=== PATIENT | male | born 1960 | race Two or more races ===

== ENCOUNTER 2020-07-20 10:53 | Inpatient (IN) | payer MEDICARE, MEDICAID ==
[~2020-07-20] VITALS: Ht 167.6 cm; Wt 79.5 kg
[2020-07-20 11:23] LABS: Basophils # (auto) 0.1 10 ^3/uL (0-0.2); Eosinophils # (auto) 0.1 10 ^3/uL (0-0.8); Eosinophils % (auto) 0.5 % (0.0-7.0); Lymphocytes # (auto) 1.7 10 ^3/uL (0.4-5.4)
[2020-07-20 11:24] LABS: Basophils % (auto) 0.9 % (0.0-2.0); Hematocrit 48.3 % (41.0-53.0); Hemoglobin 15.6 g/dL (13.5-17.5); Lymphocytes % (auto) 11.9 % (10.0-50.0); Mean Corpuscular Hemoglobin 26.1 pg (28.0-32.0); Mean Corpuscular Hgb Conc. 32.4 g/dL (32.0-36.0); Mean Corpuscular Volume 80.7 fL (80.0-100.0); Monocytes # (auto) 1.1 10 ^3/uL (0-1.3); Monocytes % (auto) 7.9 % (0.0-12.0); Neutrophils # (auto) 11.1 10 ^3/uL (1.6-8.6); Neutrophils % (auto) 78.8 % (37.0-80.0); Nucleated Red Blood Cells % 0.1 %; Platelet Count (auto) 334 10^3/uL (140-450); Red Blood Cells 5.99 10^6/uL (4.5-5.90); Red Cell Distribution Width 17.9 % (11.8-14.3); White Blood Cell 14.1 10^3/uL (4.4-10.8)
[2020-07-20 11:39] LABS: INR 0.99 (0.9-1.15); Partial Thromboplastin Time 30.3 sec (23.0-31.2)
[2020-07-20 11:41] LABS: Alanine Aminotransferase 24 U/L (16-61); Albumin 3.6 g/dL (3.4-5.0); Anion Gap 10 (5-15); Blood Urea Nitrogen 9 mg/dL (7-18); Calcium 9.2 mg/dL (8.5-10.1); Carbon Dioxide 22 mmol/L (21-32); Chloride 104 mmol/L (98-107); Glucose 133 mg/dL (74-106); Magnesium 2.1 mg/dL (1.6-2.6); Potassium 3.8 mmol/L (3.5-5.1); Sodium 136 mmol/L (136-145)
[2020-07-20 11:46] LABS: Alkaline Phosphatase 94 U/L (45-117); Aspartate Aminotransferase 23 U/L (15-37); BUN/Creatinine Ratio 11.7; Bilirubin, Total 0.7 mg/dL (0.2-1.0); GFR African American 132 mL/min; GFR Non-African American 109 mL/min; Total Protein 7.6 g/dL (6.4-8.2)
[2020-07-20] MEDS ORDERED: cefTRIAXone 1GM/50ML D5W 50 ML IV ONE (13:30)
[2020-07-20] MEDS ORDERED: SODIUM CHLORIDE 0.9% 1,000 ML IVB ONE (13:30)
[2020-07-20 14:23] LABS: Lactic Acid w/Reflex 2.7 mmol/L (0.4-2.0)
[2020-07-20] MEDS ORDERED: DOCUSATE SOD 100 MG CAP PO PRN (14:30)
[2020-07-20] MEDS ORDERED: HYDROcodone-ACET 5/325MG TAB PO PRN (14:30)
[2020-07-20] MEDS ORDERED: ONDANSETRON HCL 4 MG/2 ML VIAL IV PRN (14:30)
[2020-07-20] MEDS ORDERED: ALBUTEROL SULF 2.5 MG/0.5ML(0.5%) NEB SOLN NEB PRN (14:30)
[2020-07-20] MEDS ORDERED: ACETAMINOPHEN 500 MG TAB PO PRN (14:30)
[2020-07-20] MEDS ORDERED: IPRATROPIUM BROM 0.5 MG/2.5ML INH SOL NEB PRN (14:30)
[2020-07-20] MEDS ORDERED: NITROGLYCERIN 0.4 MG SL TAB SL PRN (14:30)
[2020-07-20] MEDS ORDERED: MORPHINE SULF INJ 2 MG/ML SYRINGE 1ML IV PRN (14:30)
[2020-07-20 14:44] VITALS: BP 149/103
[2020-07-20] MEDS ORDERED: BACTRIM 5MG/KG Q8HR PER RX 0 ML IV SCH (15:00)
[2020-07-20] MEDS: SULFAMETH-TRIMETH 80/16MG-ML 20 ML in D5W 5% 500 ML IV SCH ×2 (15:51→21:49)
[2020-07-20 16:07] LABS: Cholesterol 129 mg/dL (< 200); HDL Cholesterol 53 mg/dL (40-59); LDL Cholesterol 65 mg/dL (< 100); Triglycerides 81 mg/dL (< 150)
[2020-07-20] MEDS ORDERED: ROSU20TA14 PO (17:15)
[2020-07-20] MEDS ORDERED: MULT-928 PO (17:15)
[2020-07-20] MEDS ORDERED: BACL20TA PO (17:15)
[2020-07-20] MEDS ORDERED: ALPR0.5T7 PO (17:15)
[2020-07-20] MEDS ORDERED: NEBI10TA2 PO (17:15)
[2020-07-20] MEDS ORDERED: TIZA2TAB3 PO (17:15)
[2020-07-20] MEDS ORDERED: CLOP75TA70 PO (17:15)
[2020-07-20] MEDS ORDERED: DOLU50TA PO (17:15)
[2020-07-20] MEDS ORDERED: DORA100T PO (17:15)
[2020-07-20] MEDS ORDERED: FURO1TAB31 PO (17:15)
[2020-07-20] MEDS ORDERED: OXYC325T10 PO (17:15)
[2020-07-20] MEDS ORDERED: ACYC-166 PO (17:15)
[2020-07-20] MEDS ORDERED: NALO4SPR2 NAS (17:15)
[2020-07-20] MEDS: MORPHINE SULF INJ 2 MG/ML SYRINGE 1ML IV PRN ×2 (17:16→21:55)
[2020-07-20 18:03] LABS: Urine Bacteria NONE SEEN /hpf (None Seen); Urine Blood Negative /uL (Negative); Urine Hyaline Cast FEW /lpf (0 - 2); Urine Mucus FEW (None Seen); Urine WBC <1 /hpf (0 - 3)
[2020-07-20] MEDS ORDERED: LABETALOL HCL 5 MG/ML 4ML SYRINGE IV PRN (19:00)
[2020-07-20] MEDS: ATORVASTATIN 20 MG TAB PO SCH (21:54)
[2020-07-20 22:26] VITALS: BP 135/89
[2020-07-20 22:46] VITALS: BP 135/89
[2020-07-20] MEDS ORDERED: ALPR0.25 PO (22:52)
[2020-07-20] MEDS ORDERED: PNEUMOCOCCAL VACC POLYS 25 MCG/0.5 ML VIAL IM ONE (23:00)
[2020-07-20] MEDS ORDERED: INFLUENZA QUAD 2020-2021 0.5 ML SYRG IM ONE (23:00)
[2020-07-21] VITALS (7 sets, daily range): BP systolic 147–160; BP diastolic 91–108
[2020-07-21] MEDS: MORPHINE SULF INJ 2 MG/ML SYRINGE 1ML IV PRN ×3 (03:17→22:14)
[2020-07-21] MEDS: SULFAMETH-TRIMETH 80/16MG-ML 20 ML in D5W 5% 500 ML IV SCH ×3 (05:26→22:00)
[2020-07-21 07:19] LABS: Basophils # (auto) 0.1 10 ^3/uL (0-0.2); Hemoglobin 15.2 g/dL (13.5-17.5); Lymphocytes # (auto) 1.9 10 ^3/uL (0.4-5.4); Mean Corpuscular Hemoglobin 26.4 pg (28.0-32.0); Platelet Count (auto) 279 10^3/uL (140-450); Red Cell Distribution Width 18.2 % (11.8-14.3)
[2020-07-21 07:21] LABS: Basophils % (auto) 0.7 % (0.0-2.0); Eosinophils # (auto) 0.2 10 ^3/uL (0-0.8); Eosinophils % (auto) 1.5 % (0.0-7.0); Hematocrit 45.7 % (41.0-53.0); Lymphocytes % (auto) 18.1 % (10.0-50.0); Mean Corpuscular Hgb Conc. 33.2 g/dL (32.0-36.0); Mean Corpuscular Volume 79.6 fL (80.0-100.0); Monocytes # (auto) 1.2 10 ^3/uL (0-1.3); Monocytes % (auto) 11.4 % (0.0-12.0); Neutrophils % (auto) 68.3 % (37.0-80.0); Nucleated Red Blood Cells % 0.6 %; Red Blood Cells 5.74 10^6/uL (4.5-5.90); White Blood Cell 10.3 10^3/uL (4.4-10.8)
[2020-07-21 07:40] LABS: Calcium 8.6 mg/dL (8.5-10.1); Potassium 3.9 mmol/L (3.5-5.1)
[2020-07-21] MEDS ORDERED: cefTRIAXone 1GM/50ML D5W 50 ML IV SCH (09:00)
[2020-07-21] MEDS: ASPirin-EC 81 mg tab PO SCH ×2 (09:42→10:20)
[2020-07-21] MEDS: FAMOTIDINE 20 MG TAB PO SCH ×2 (09:42→10:20)
[2020-07-21] MEDS: CLOPIDOGREL BISULFATE 75 MG TAB PO SCH ×2 (09:42→10:20)
[2020-07-21] MEDS ORDERED: AZITHROMYCIN 500MG/ 250ML 250 ML IV SCH (10:00)
[2020-07-21] MEDS ORDERED: IPRATROPIUM BROM 0.5 MG/2.5ML INH SOL NEB SCH (13:00)
[2020-07-21] MEDS ORDERED: ACETYLCYSTEINE 10 %(100MG/ML) SOL 4ML NEB SCH (13:00)
[2020-07-21] MEDS ORDERED: LEVALBUTEROL HCL 1.25 MG/3 ML NEB NEB SCH (13:15)
[2020-07-21] MEDS ORDERED: METOPROLOL TARTRATE 25 MG TAB PO ONE (14:00)
[2020-07-21] MEDS ORDERED: BACLOFEN 10 MG TAB PO PRN (14:00)
[2020-07-21] MEDS: ATORVASTATIN 20 MG TAB PO SCH (22:00)
[2020-07-21] MEDS: METOPROLOL TARTRATE 25 MG TAB PO SCH (22:01)
[2020-07-22] VITALS (7 sets, daily range): BP systolic 124–169; BP diastolic 89–115
[2020-07-22] MEDS ORDERED: LABETALOL HCL 5 MG/ML 4ML SYRINGE IV PRN (05:15)
[2020-07-22] MEDS: SULFAMETH-TRIMETH 80/16MG-ML 20 ML in D5W 5% 500 ML IV SCH ×3 (05:25→22:40)
[2020-07-22] MEDS: LEVALBUTEROL HCL 1.25 MG/3 ML NEB NEB SCH ×3 (07:49→22:23)
[2020-07-22] MEDS: ACETYLCYSTEINE 10 %(100MG/ML) SOL 4ML NEB SCH ×3 (07:49→22:24)
[2020-07-22] MEDS: IPRATROPIUM BROM 0.5 MG/2.5ML INH SOL NEB SCH ×3 (07:52→22:23)
[2020-07-22] MEDS: PIFELTRO 100 MG PO SCH (10:00)
[2020-07-22] MEDS: TIVICAY 50 MG PO SCH (10:00)
[2020-07-22] MEDS: ACYCLOVIR 400 MG TAB PO SCH (11:34)
[2020-07-22] MEDS: METOPROLOL TARTRATE 25 MG TAB PO SCH ×2 (11:35→22:41)
[2020-07-22] MEDS: POTASSIUM CHLORIDE 8 MEQ TAB PO SCH (11:36)
[2020-07-22] MEDS: FUROSEMIDE 40 MG TAB PO SCH (11:44)
[2020-07-22] MEDS: MORPHINE SULF INJ 2 MG/ML SYRINGE 1ML IV PRN (20:00)
[2020-07-22] MEDS: ATORVASTATIN 20 MG TAB PO SCH (22:40)
[2020-07-23 05:00] VITALS: BP 137/101
[2020-07-23] MEDS: SULFAMETH-TRIMETH 80/16MG-ML 20 ML in D5W 5% 500 ML IV SCH ×3 (06:05→20:59)
[2020-07-23] MEDS: IPRATROPIUM BROM 0.5 MG/2.5ML INH SOL NEB SCH ×3 (06:21→21:54)
[2020-07-23] MEDS: LEVALBUTEROL HCL 1.25 MG/3 ML NEB NEB SCH ×3 (06:21→21:54)
[2020-07-23] MEDS: ACETYLCYSTEINE 10 %(100MG/ML) SOL 4ML NEB SCH ×3 (06:21→21:54)
[2020-07-23 09:00] VITALS: BP 145/100
[2020-07-23] MEDS: FUROSEMIDE 40 MG TAB PO SCH (09:48)
[2020-07-23] MEDS: POTASSIUM CHLORIDE 8 MEQ TAB PO SCH (09:48)
[2020-07-23] MEDS: ACYCLOVIR 400 MG TAB PO SCH (09:48)
[2020-07-23] MEDS: FAMOTIDINE 20 MG TAB PO SCH (09:48)
[2020-07-23] MEDS: PIFELTRO 100 MG PO SCH (10:00)
[2020-07-23] MEDS: TIVICAY 50 MG PO SCH (10:00)
[2020-07-23] MEDS ORDERED: levoFLOXacin 500MG 100 ML IV ONE (10:15)
[2020-07-23 13:00] VITALS: BP_SYST 133; BP_SYST 135; BP_DIAS 84; BP_DIAS 96
[2020-07-23] MEDS: METOPROLOL TARTRATE 25 MG TAB PO SCH ×2 (14:01→21:14)
[2020-07-23] MEDS: LACTULOSE 20Gm/30ML SOLN PO SCH ×2 (14:14→17:54)
[2020-07-23 14:58] VITALS: BP 135/96
[2020-07-23 17:00] VITALS: BP 141/86
[2020-07-23] MEDS: methylPREDNISolone SOD SUCC 40 MG/ML VL IV SCH (20:59)
[2020-07-23] MEDS: ATORVASTATIN 20 MG TAB PO SCH (21:00)
[2020-07-23 22:14] VITALS: BP 135/99
[2020-07-24 05:15] VITALS: BP 119/78
[2020-07-24] MEDS: SULFAMETH-TRIMETH 80/16MG-ML 20 ML in D5W 5% 500 ML IV SCH ×3 (05:16→21:32)
[2020-07-24] MEDS: IPRATROPIUM BROM 0.5 MG/2.5ML INH SOL NEB SCH ×3 (07:00→14:18)
[2020-07-24] MEDS: LEVALBUTEROL HCL 1.25 MG/3 ML NEB NEB SCH ×3 (07:00→14:18)
[2020-07-24] MEDS: ACETYLCYSTEINE 10 %(100MG/ML) SOL 4ML NEB SCH ×3 (07:00→14:18)
[2020-07-24] MEDS: methylPREDNISolone SOD SUCC 40 MG/ML VL IV SCH ×2 (08:55→21:32)
[2020-07-24] MEDS: POTASSIUM CHLORIDE 8 MEQ TAB PO SCH (08:55)
[2020-07-24] MEDS: levoFLOXacin 500MG 100 ML IV SCH (08:55)
[2020-07-24] MEDS: FAMOTIDINE 20 MG TAB PO SCH (08:55)
[2020-07-24] MEDS: ACYCLOVIR 400 MG TAB PO SCH (08:56)
[2020-07-24] MEDS: MORPHINE SULF INJ 2 MG/ML SYRINGE 1ML IV PRN ×2 (08:57→20:35)
[2020-07-24 09:00] VITALS: BP 132/89
[2020-07-24] MEDS ORDERED: PIFELTRO 100 MG PO SCH (10:00)
[2020-07-24] MEDS: METOPROLOL TARTRATE 25 MG TAB PO SCH ×2 (10:00→21:33)
[2020-07-24] MEDS: PIFELTRO 100 MG PO SCH (11:51)
[2020-07-24] MEDS: TIVICAY 50 MG PO SCH (11:52)
[2020-07-24 13:00] VITALS: BP 148/97
[2020-07-24] MEDS: FUROSEMIDE 40 MG TAB PO SCH (13:03)
[2020-07-24 17:00] VITALS: BP 135/90
[2020-07-24 21:30] VITALS: BP 122/92
[2020-07-24] MEDS: ATORVASTATIN 20 MG TAB PO SCH (21:33)
[2020-07-24] MEDS: ALPRAZolam 0.25 MG TAB PO PRN (22:04)
[2020-07-25] MEDS ORDERED: SULFAMETH TRIMETH IV ONE (01:29)
[2020-07-25 05:00] VITALS: BP 143/97
[2020-07-25] MEDS: SULFAMETH-TRIMETH 80/16MG-ML 20 ML in D5W 5% 500 ML IV SCH ×3 (05:50→22:34)
[2020-07-25] MEDS: IPRATROPIUM BROM 0.5 MG/2.5ML INH SOL NEB SCH ×4 (07:00→23:01)
[2020-07-25] MEDS: LEVALBUTEROL HCL 1.25 MG/3 ML NEB NEB SCH ×4 (07:00→23:01)
[2020-07-25] MEDS: ACETYLCYSTEINE 10 %(100MG/ML) SOL 4ML NEB SCH ×4 (07:00→23:01)
[2020-07-25 07:05] LABS: Basophils # (auto) 0 10 ^3/uL (0-0.2); Eosinophils # (auto) 0 10 ^3/uL (0-0.8); Eosinophils % (auto) 0.1 % (0.0-7.0)
[2020-07-25 07:09] LABS: Basophils % (auto) 0.1 % (0.0-2.0); Hematocrit 52.4 % (41.0-53.0); Hemoglobin 17.4 g/dL (13.5-17.5); Lymphocytes # (auto) 1.2 10 ^3/uL (0.4-5.4); Lymphocytes % (auto) 9.7 % (10.0-50.0); Mean Corpuscular Hemoglobin 26.2 pg (28.0-32.0); Mean Corpuscular Hgb Conc. 33.2 g/dL (32.0-36.0); Mean Corpuscular Volume 79.1 fL (80.0-100.0); Monocytes # (auto) 0.8 10 ^3/uL (0-1.3); Monocytes % (auto) 6.8 % (0.0-12.0); Neutrophils # (auto) 10.2 10 ^3/uL (1.6-8.6); Neutrophils % (auto) 83.3 % (37.0-80.0); Nucleated Red Blood Cells % 0.2 %; Platelet Count (auto) 372 10^3/uL (140-450); Red Blood Cells 6.63 10^6/uL (4.5-5.90); Red Cell Distribution Width 17.8 % (11.8-14.3); White Blood Cell 12.3 10^3/uL (4.4-10.8)
[2020-07-25 07:12] LABS: INR 1.08 (0.9-1.15)
[2020-07-25 07:17] LABS: Calcium 9.5 mg/dL (8.5-10.1); Potassium 4.5 mmol/L (3.5-5.1)
[2020-07-25 07:21] LABS: BUN/Creatinine Ratio 21.1
[2020-07-25 08:27] VITALS: BP 129/92
[2020-07-25] MEDS: PIFELTRO 100 MG PO SCH (10:09)
[2020-07-25] MEDS: methylPREDNISolone SOD SUCC 40 MG/ML VL IV SCH (10:09)
[2020-07-25] MEDS: levoFLOXacin 500MG 100 ML IV SCH (10:09)
[2020-07-25] MEDS: POTASSIUM CHLORIDE 8 MEQ TAB PO SCH (10:10)
[2020-07-25] MEDS: FUROSEMIDE 40 MG TAB PO SCH (10:10)
[2020-07-25] MEDS: TIVICAY 50 MG PO SCH (10:10)
[2020-07-25] MEDS: FAMOTIDINE 20 MG TAB PO SCH (10:11)
[2020-07-25] MEDS: ACYCLOVIR 400 MG TAB PO SCH (10:11)
[2020-07-25] MEDS: METOPROLOL TARTRATE 25 MG TAB PO SCH ×2 (10:11→22:53)
[2020-07-25] MEDS: ALPRAZolam 0.25 MG TAB PO PRN ×2 (10:26→22:35)
[2020-07-25 13:00] VITALS: BP 141/97
[2020-07-25 16:57] VITALS: BP 139/92
[2020-07-25] MEDS: MORPHINE SULF INJ 2 MG/ML SYRINGE 1ML IV PRN (20:35)
[2020-07-25 22:00] VITALS: BP 152/99
[2020-07-25] MEDS: ATORVASTATIN 20 MG TAB PO SCH (22:34)
[2020-07-26 05:00] VITALS: BP 130/83
[2020-07-26] MEDS: MORPHINE SULF INJ 2 MG/ML SYRINGE 1ML IV PRN ×2 (06:58→15:58)
[2020-07-26] MEDS: IPRATROPIUM BROM 0.5 MG/2.5ML INH SOL NEB SCH (07:05)
[2020-07-26] MEDS: LEVALBUTEROL HCL 1.25 MG/3 ML NEB NEB SCH (07:05)
[2020-07-26] MEDS: ACETYLCYSTEINE 10 %(100MG/ML) SOL 4ML NEB SCH (07:06)
[2020-07-26] MEDS: SULFAMETH-TRIMETH 80/16MG-ML 20 ML in D5W 5% 500 ML IV SCH ×2 (07:09→15:45)
[2020-07-26] MEDS ORDERED: LIDOCAINE HCL 2 % INJ 2ML MPF NEB ONE (08:00)
[2020-07-26] MEDS ORDERED: MIDAZOLAM HCL 1MG/1ML-2 ML VIAL ONE (08:04)
[2020-07-26] MEDS ORDERED: fentaNYL CITRATE 100 MCG/2 ML VL ONE (08:04)
[2020-07-26] MEDS ORDERED: SODIUM CHLORIDE LOCK 10 ML ONE (08:05)
[2020-07-26] MEDS ORDERED: PROPOFOL 10 MG/ML 20 ML IV ONE (08:05)
[2020-07-26] MEDS ORDERED: ONDANSETRON HCL 4 MG/2 ML VIAL ONE (08:05)
[2020-07-26 08:59] VITALS: BP 136/94
[2020-07-26] MEDS ORDERED: EPINEPHrine HCL 1 MG/1 ML AMP ONE (09:02)
[2020-07-26] MEDS ORDERED: SODIUM CHLORIDE LOCK 0 ML ONE (09:02)
[2020-07-26] MEDS ORDERED: LIDOCAINE HCL 2% TOP JELLY 5ML TOP ONE (09:02)
[2020-07-26] MEDS ORDERED: LIDOCAINE 2%HCL (LOCAL ANESTH.) INJ 20ML MDV ONE (09:02)
[2020-07-26] MEDS ORDERED: DexAMETHasone SOD PHOS 10MG/1ML VIAL INJ ONE (09:41)
[2020-07-26] MEDS: TIVICAY 50 MG PO SCH (10:00)
[2020-07-26] MEDS: levoFLOXacin 500MG 100 ML IV SCH (10:00)
[2020-07-26] MEDS: FAMOTIDINE 20 MG TAB PO SCH (10:00)
[2020-07-26] MEDS: PIFELTRO 100 MG PO SCH (10:00)
[2020-07-26] MEDS: FUROSEMIDE 40 MG TAB PO SCH (10:00)
[2020-07-26] MEDS: POTASSIUM CHLORIDE 8 MEQ TAB PO SCH (10:00)
[2020-07-26] MEDS: METOPROLOL TARTRATE 25 MG TAB PO SCH (10:00)
[2020-07-26] MEDS ORDERED: ONDANSETRON HCL 4 MG/2 ML VIAL IV PRN (10:30)
[2020-07-26] MEDS ORDERED: HYDROmorphone HCL 2 MG/ML VL IV PRN (10:30)
[2020-07-26] MEDS ORDERED: MORPHINE SULF INJ 2 MG/ML SYRINGE 1ML IV PRN (10:30)
[2020-07-26] MEDS ORDERED: LEVO750T64 PO (12:43)
[2020-07-26] MEDS ORDERED: SULF800T7 PO (12:43)
[2020-07-26 13:16] VITALS: BP 135/89
[2020-07-26] MEDS: ACYCLOVIR 400 MG TAB PO SCH (15:45)
[2020-07-26 17:56] VITALS: BP 135/89
== END 2020-07-26 18:46 | disposition home or self-care (01) | DRG 871 ==
LOC: ER 10:53 → EDBD 10:53 → EDUNIT# 10:53 → TELE 14:27 → TELE-EAST 20:13
PROVIDERS: ADMIT Nurse Practitioner Acute Care; ATTEND Internal Medicine
PROC: 0BDG8ZX Extraction of Left Upper Lung Lobe, Via Natural or Artificial Opening Endoscopic, Diagnostic (ICD-10-PCS; 2020-07-26)
PROC: 0BDJ8ZX Extraction of Left Lower Lung Lobe, Via Natural or Artificial Opening Endoscopic, Diagnostic (ICD-10-PCS; principal; 2020-07-26 09:19)
DX: A41.9 Sepsis, unspecified organism (principal); J18.9 Pneumonia, unspecified organism; J96.21 Acute and chronic respiratory failure with hypoxia; E44.0 Moderate protein-calorie malnutrition; J98.11 Atelectasis; Z20.822 Contact with and (suspected) exposure to COVID-19; Z66 Do not resuscitate; F17.210 Nicotine dependence, cigarettes, uncomplicated; E78.5 Hyperlipidemia, unspecified; I11.0 Hypertensive heart disease with heart failure; I25.10 Atherosclerotic heart disease of native coronary artery without angina pectoris; R07.81 Pleurodynia; I50.9 Heart failure, unspecified; Z96.649 Presence of unspecified artificial hip joint; J43.9 Emphysema, unspecified; Z82.49 Family history of ischemic heart disease and other diseases of the circulatory system; Z68.28 Body mass index [BMI] 28.0-28.9, adult; Z91.011 Allergy to milk products; I25.2 Old myocardial infarction; Z83.3 Family history of diabetes mellitus; Z95.5 Presence of coronary angioplasty implant and graft; Z90.49 Acquired absence of other specified parts of digestive tract
CPT/HCPCS: 36415; 71045; 71250; 80048; 80053; 80061; 81001; 83605; 83615; 83735; 83880; 84484; 85025; 85610; 85730; 86360; 86850; 86900; 86901; 87040; 87070; 87205; 87426; 93005; 94640; 96365; 96375; G0378; J0171; J0696; J1100; J1956; J2250; J2405; J2704; J3490

== ENCOUNTER → 2020-08-18 | Outpatient (CLI) | payer MEDICARE, MEDICAID ==
[~2020-08-18] MED LIST: ACYC-166 PO; ALPR0.25 PO; ALPR0.5T7 PO; BACL20TA PO; CLOP75TA70 PO; DOLU50TA PO; DORA100T PO; FURO1TAB31 PO; LEVO750T64 PO; MULT-928 PO; NALO4SPR2 NAS; NEBI10TA2 PO; OXYC325T10 PO; ROSU20TA14 PO; SULF800T7 PO; TIZA2TAB3 PO
== END | disposition home or self-care (01) ==
LOC: LAB 10:48
PROVIDERS: ATTEND Internal Medicine Pulmonary Disease
DX: Z01.812 Encounter for preprocedural laboratory examination (principal); Z20.822 Contact with and (suspected) exposure to COVID-19
CPT/HCPCS: 36415; 87426

== ENCOUNTER → 2020-08-19 | Outpatient (CLI) | payer MEDICARE, MEDICAID ==
[~2020-08-19] MED LIST changes: +ALBUTEROL SULF 2.5 MG/0.5ML(0.5%) NEB SOLN ONE
== END | disposition home or self-care (01) ==
LOC: RT 10:41
PROVIDERS: ATTEND Internal Medicine Pulmonary Disease
DX: J44.9 Chronic obstructive pulmonary disease, unspecified (principal)
CPT/HCPCS: 94060; 94727; 94729

== ENCOUNTER 2020-10-02 06:25 | Inpatient (IN) | payer MEDICARE, MEDICAID ==
[~2020-10-02] VITALS: Ht 157.5 cm; Wt 80.7 kg
[~2020-10-02 06:25] MED LIST changes: -ALBUTEROL SULF 2.5 MG/0.5ML(0.5%) NEB SOLN ONE; -TIZA2TAB3 PO; +TIZA2TAB4 PO
[2020-10-02] MEDS ORDERED: ALBUTEROL SULF 2.5 MG/0.5ML(0.5%) NEB SOLN NEB ONE ×2 (06:45)
[2020-10-02] MEDS ORDERED: methylPREDNISolone SOD SUCC 125 MG/2 ML VL IV ONE (06:45)
[2020-10-02] MEDS ORDERED: FUROSEMIDE 40 MG/4 ML VIAL IV ONE ×2 (07:00→17:15)
[2020-10-02] MEDS ORDERED: LABETALOL HCL 5 MG/ML 4ML SYRINGE IV ONE (07:00)
[2020-10-02 07:15] LABS: Basophils # (auto) 0.1 10 ^3/uL (0-0.2); Basophils % (auto) 0.6 % (0.0-2.0); Eosinophils # (auto) 0.2 10 ^3/uL (0-0.8); Eosinophils % (auto) 1.1 % (0.0-7.0); Hematocrit 47.3 % (41.0-53.0); Hemoglobin 15.8 g/dL (13.5-17.5); Lymphocytes # (auto) 3.3 10 ^3/uL (0.4-5.4); Lymphocytes % (auto) 22.5 % (10.0-50.0); Mean Corpuscular Hgb Conc. 33.4 g/dL (32.0-36.0); Mean Corpuscular Volume 80.8 fL (80.0-100.0); Monocytes # (auto) 1.5 10 ^3/uL (0-1.3); Monocytes % (auto) 10.4 % (0.0-12.0); Neutrophils # (auto) 9.5 10 ^3/uL (1.6-8.6); Neutrophils % (auto) 65.4 % (37.0-80.0); Nucleated Red Blood Cells % 0.2 %; Red Blood Cells 5.85 10^6/uL (4.5-5.90); Red Cell Distribution Width 18.3 % (11.8-14.3); White Blood Cell 14.6 10^3/uL (4.4-10.8)
[2020-10-02] MEDS ORDERED: MAGNESIUM SULFATE 1GM/100ML 100 ML IV ONE (07:15)
[2020-10-02 07:27] LABS: Albumin 3.1 g/dL (3.4-5.0); BUN/Creatinine Ratio 17.1; Calcium 8.3 mg/dL (8.5-10.1); Potassium 3.7 mmol/L (3.5-5.1)
[2020-10-02 07:32] LABS: Bilirubin, Total 0.6 mg/dL (0.2-1.0)
[2020-10-02] MEDS ORDERED: ENOXAPARIN SOD 80 MG/0.8ML SYRINGE SC ONE (08:00)
[2020-10-02] MEDS ORDERED: HYDROcodone-ACET 5/325MG TAB PO PRN (10:45)
[2020-10-02] MEDS ORDERED: MORPHINE SULFATE INJECTION 2 MG/ML SYRG IV PRN (10:45)
[2020-10-02] MEDS ORDERED: NITROGLYCERIN 0.4 MG SL TAB SL PRN (10:45)
[2020-10-02] MEDS ORDERED: ACETAMINOPHEN 500 MG TAB PO PRN (10:45)
[2020-10-02] MEDS ORDERED: ONDANSETRON HCL 4 MG/2 ML VIAL IV PRN (10:45)
[2020-10-02 10:51] LABS: Urine WBC None Seen /hpf (0 - 3)
[2020-10-02] MEDS: FAMOTIDINE 20 MG TAB PO SCH (10:55)
[2020-10-02 11:08] LABS: Urine Bacteria NONE SEEN /hpf (None Seen); Urine Blood Negative /uL (Negative); Urine Mucus FEW (None Seen)
[2020-10-02 11:18] LABS: Alcohol, Urine < 3.0 mg/dL (0-10); Amphetamine Screen, Urine POSITIVE (NEGATIVE); Barbiturate Scree,Urine NEGATIVE (NEGATIVE); Benzodiazephine Screen, Urine NEGATIVE (NEGATIVE); Cannabinoid Screen, Urine NEGATIVE (NEGATIVE); Cocaine Screen, Urine NEGATIVE (NEGATIVE); Opiate Scree,Urine NEGATIVE (NEGATIVE); Phencyclidine Screen, Urine NEGATIVE (NEGATIVE)
[2020-10-02] MEDS ORDERED: ALPRAZolam 0.25 MG TAB PO ONE (11:45)
[2020-10-02] MEDS: MORPHINE SULFATE INJECTION 2 MG/ML SYRG IV PRN (12:50)
[2020-10-02] MEDS ORDERED: BACLOFEN 10 MG TAB PO PRN (14:00)
[2020-10-02] MEDS: hydrALAZINE HCL 20 MG/ML VL IV PRN (16:13)
[2020-10-02 16:47] VITALS: BP 156/112
[2020-10-02] MEDS ORDERED: NITROGLYCERIN 0.4 MG SL TAB SL ONE (17:15)
[2020-10-02] MEDS ORDERED: hydrALAZINE HCL 20 MG/ML VL IV ONE (17:15)
[2020-10-02] MEDS: LISINOPRIL 20 MG TAB PO SCH (18:22)
[2020-10-02] MEDS: METOPROLOL TARTRATE 25 MG TAB PO SCH (21:41)
[2020-10-02] MEDS: ATORVASTATIN 20 MG TAB PO SCH (21:41)
[2020-10-02 22:00] VITALS: BP 133/93
[2020-10-02] MEDS ORDERED: ATORVASTATIN 20 MG TAB PO SCH (22:00)
[2020-10-03] VITALS (40 sets, daily range): BP systolic 39–152; BP diastolic 18–104
[2020-10-03] MEDS: hydrALAZINE HCL 20 MG/ML VL IV PRN (04:15)
[2020-10-03 05:57] LABS: Basophils # (auto) 0 10 ^3/uL (0-0.2); Basophils % (auto) 0.2 % (0.0-2.0); Eosinophils # (auto) 0 10 ^3/uL (0-0.8); Eosinophils % (auto) 0.1 % (0.0-7.0); Hematocrit 43.9 % (41.0-53.0); Hemoglobin 14.9 g/dL (13.5-17.5); Lymphocytes # (auto) 2.1 10 ^3/uL (0.4-5.4); Lymphocytes % (auto) 14.5 % (10.0-50.0); Mean Corpuscular Hgb Conc. 33.9 g/dL (32.0-36.0); Mean Corpuscular Volume 79.7 fL (80.0-100.0); Monocytes # (auto) 1.7 10 ^3/uL (0-1.3); Neutrophils # (auto) 10.4 10 ^3/uL (1.6-8.6); Neutrophils % (auto) 73.2 % (37.0-80.0); Nucleated Red Blood Cells % 0.3 %; Red Blood Cells 5.51 10^6/uL (4.5-5.90); Red Cell Distribution Width 17.9 % (11.8-14.3); White Blood Cell 14.2 10^3/uL (4.4-10.8)
[2020-10-03 06:03] LABS: INR 1.04 (0.9-1.15); Partial Thromboplastin Time 25.7 sec (23.0-31.2)
[2020-10-03 06:20] LABS: Calcium 7.9 mg/dL (8.5-10.1); Potassium 3.7 mmol/L (3.5-5.1)
[2020-10-03 06:22] LABS: BUN/Creatinine Ratio 26.4
[2020-10-03] MEDS: NITROGLYCERIN 0.2MG/HR TOPICAL PATCH TD SCH (10:00)
[2020-10-03] MEDS ORDERED: DOLUTEGRAVIR SODIUM 50 MG PO SCH (10:00)
[2020-10-03] MEDS ORDERED: DORAVIRINE 100 MG PO SCH (10:00)
[2020-10-03] MEDS ORDERED: LISINOPRIL 10 MG TAB PO SCH (10:00)
[2020-10-03] MEDS: levoFLOXacin 500MG 100 ML IV SCH (10:00)
[2020-10-03] MEDS: MULTIPLE VITAMINS W/ MINERALS TAB PO SCH (10:05)
[2020-10-03] MEDS: ALPRAZolam 0.5 MG TAB PO SCH (10:05)
[2020-10-03] MEDS: ASPirin-EC 81 mg tab PO SCH (10:05)
[2020-10-03] MEDS: FAMOTIDINE 20 MG TAB PO SCH (10:05)
[2020-10-03] MEDS: CLOPIDOGREL BISULFATE 75 MG TAB PO SCH (10:06)
[2020-10-03] MEDS: DORAVIRINE 100 MG PO SCH (10:06)
[2020-10-03] MEDS: DOLUTEGRAVIR SODIUM 50 MG PO SCH (10:06)
[2020-10-03] MEDS: METOPROLOL TARTRATE 25 MG TAB PO SCH ×2 (10:17→22:36)
[2020-10-03] MEDS: LISINOPRIL 20 MG TAB PO SCH (10:17)
[2020-10-03] MEDS ORDERED: LIDOCAINE 2%HCL (LOCAL ANESTH.) INJ 20ML MDV ONE ×2 (11:36→12:58)
[2020-10-03] MEDS ORDERED: IODIXANOL 320MG/ML 100ML BTL IV ONE (11:36)
[2020-10-03] MEDS ORDERED: fentaNYL CITRATE 100 MCG/2 ML VL ONE (12:05)
[2020-10-03] MEDS ORDERED: ANGIOMAX 250 MG VIAL IV ONE (12:05)
[2020-10-03] MEDS ORDERED: SODIUM CHL 0.9% 0 ML ONE (12:05)
[2020-10-03] MEDS ORDERED: MIDAZOLAM HCL 2MG/2ML 2ml VIAL (1mg/ml) ONE (12:05)
[2020-10-03] MEDS ORDERED: HEPARIN SODIUM (PORCINE) 5000 UNITS/ML 1ML VIAL ONE (12:16)
[2020-10-03] MEDS ORDERED: VERAPAMIL 2.5MG/ML INJ 2ML VIAL IV ONE (12:16)
[2020-10-03] MEDS ORDERED: diphenhdrAMINE HCL 50 MG/1 ML VL ONE (12:30)
[2020-10-03] MEDS ORDERED: DOBUTamine 1000MCG/ML 250 ML IV ONE (13:37)
[2020-10-03] MEDS: DOBUTamine 1000MCG/ML 250 ML IV SCH ×2 (14:05→18:36)
[2020-10-03] MEDS: MORPHINE SULFATE INJECTION 2 MG/ML SYRG IV PRN ×2 (17:29→22:56)
[2020-10-03] MEDS: FUROSEMIDE 40 MG/4 ML VIAL IV SCH (17:30)
[2020-10-03] MEDS: ATORVASTATIN 20 MG TAB PO SCH (22:35)
[2020-10-04] VITALS (83 sets, daily range): BP systolic 26–132; BP diastolic 11–97
[2020-10-04] MEDS: DOBUTamine 1000MCG/ML 250 ML IV SCH ×4 (00:23→23:17)
[2020-10-04] MEDS: FUROSEMIDE 40 MG/4 ML VIAL IV SCH ×2 (06:30→19:20)
[2020-10-04] MEDS: MORPHINE SULFATE INJECTION 2 MG/ML SYRG IV PRN ×2 (06:48→11:17)
[2020-10-04 08:29] LABS: Basophils # (auto) 0.1 10 ^3/uL (0-0.2); Basophils % (auto) 0.8 % (0.0-2.0); Eosinophils # (auto) 0.1 10 ^3/uL (0-0.8); Eosinophils % (auto) 0.7 % (0.0-7.0); Hematocrit 42.1 % (41.0-53.0); Hemoglobin 14.4 g/dL (13.5-17.5); Lymphocytes # (auto) 1.1 10 ^3/uL (0.4-5.4); Lymphocytes % (auto) 10.9 % (10.0-50.0); Mean Corpuscular Hemoglobin 27.2 pg (28.0-32.0); Mean Corpuscular Hgb Conc. 34.3 g/dL (32.0-36.0); Mean Corpuscular Volume 79.3 fL (80.0-100.0); Monocytes % (auto) 9.7 % (0.0-12.0); Neutrophils % (auto) 77.9 % (37.0-80.0); Nucleated Red Blood Cells % 0.1 %; Red Blood Cells 5.31 10^6/uL (4.5-5.90); Red Cell Distribution Width 18.3 % (11.8-14.3); White Blood Cell 10.2 10^3/uL (4.4-10.8)
[2020-10-04 08:50] LABS: Calcium 7.5 mg/dL (8.5-10.1); Magnesium 2.5 mg/dL (1.6-2.6); Potassium 3.6 mmol/L (3.5-5.1)
[2020-10-04 08:53] LABS: BUN/Creatinine Ratio 22.5; Total Protein 6.3 g/dL (6.4-8.2)
[2020-10-04] MEDS: LISINOPRIL 20 MG TAB PO SCH ×3 (10:00→21:51)
[2020-10-04] MEDS: DORAVIRINE 100 MG PO SCH (10:00)
[2020-10-04] MEDS: NITROGLYCERIN 0.2MG/HR TOPICAL PATCH TD SCH (10:00)
[2020-10-04] MEDS: DOLUTEGRAVIR SODIUM 50 MG PO SCH (10:00)
[2020-10-04] MEDS: levoFLOXacin 500MG 100 ML IV SCH (10:40)
[2020-10-04] MEDS: ALPRAZolam 0.5 MG TAB PO SCH (11:01)
[2020-10-04] MEDS: METOPROLOL TARTRATE 25 MG TAB PO SCH ×2 (11:01→21:50)
[2020-10-04] MEDS: FAMOTIDINE 20 MG TAB PO SCH (11:01)
[2020-10-04] MEDS: ASPirin-EC 81 mg tab PO SCH (11:02)
[2020-10-04] MEDS: CLOPIDOGREL BISULFATE 75 MG TAB PO SCH (11:02)
[2020-10-04] MEDS: MULTIPLE VITAMINS W/ MINERALS TAB PO SCH (11:03)
[2020-10-04] MEDS ORDERED: DOBUTamine 1000MCG/ML 250 ML IV SCH (14:30)
[2020-10-04] MEDS: ATORVASTATIN 20 MG TAB PO SCH (21:50)
[2020-10-05] MEDS: MORPHINE SULFATE INJECTION 2 MG/ML SYRG IV PRN ×3 (04:46→15:03)
[2020-10-05 05:33] VITALS: BP 125/89
[2020-10-05] MEDS: FUROSEMIDE 40 MG/4 ML VIAL IV SCH ×2 (06:06→17:53)
[2020-10-05 06:42] LABS: Potassium 3.6 mmol/L (3.5-5.1)
[2020-10-05 06:51] LABS: BUN/Creatinine Ratio 23.9
[2020-10-05 09:00] VITALS: BP 119/80
[2020-10-05] MEDS: NITROGLYCERIN 0.2MG/HR TOPICAL PATCH TD SCH (10:00)
[2020-10-05] MEDS: FAMOTIDINE 20 MG TAB PO SCH (10:05)
[2020-10-05] MEDS: DOBUTamine 1000MCG/ML 250 ML IV SCH ×2 (10:07→17:22)
[2020-10-05] MEDS: METOPROLOL TARTRATE 25 MG TAB PO SCH (10:07)
[2020-10-05] MEDS: LISINOPRIL 20 MG TAB PO SCH (10:08)
[2020-10-05] MEDS: ASPirin-EC 81 mg tab PO SCH (10:09)
[2020-10-05] MEDS: ALPRAZolam 0.5 MG TAB PO SCH (10:09)
[2020-10-05] MEDS: CLOPIDOGREL BISULFATE 75 MG TAB PO SCH (10:09)
[2020-10-05] MEDS: levoFLOXacin 500MG 100 ML IV SCH (10:10)
[2020-10-05] MEDS: MULTIPLE VITAMINS W/ MINERALS TAB PO SCH (10:10)
[2020-10-05] MEDS: DORAVIRINE 100 MG PO SCH (12:10)
[2020-10-05] MEDS: DOLUTEGRAVIR SODIUM 50 MG PO SCH (12:10)
[2020-10-05 13:00] VITALS: BP 120/76
[2020-10-05] MEDS ORDERED: SACUBITRIL-VALSARTAN 24mg/26mg TAB PO SCH ×2 (15:30→22:00)
[2020-10-05 17:00] VITALS: BP 113/78
[2020-10-05 18:21] VITALS: BP 113/72
[2020-10-05 20:29] LABS: Potassium 3.7 mmol/L (3.5-5.1)
== END 2020-10-05 20:25 | disposition short-term general hospital (02) | DRG 280 ==
LOC: ER 06:25 → TELE 10:38 → TELE-WESTW 13:59 → ICU WEST 10-03 16:13 → TELE-WESTW 10-04 21:19
PROVIDERS: ADMIT Nurse Practitioner Acute Care; ATTEND Internal Medicine Pulmonary Disease
PROC: 4A023N8 Measurement of Cardiac Sampling and Pressure, Bilateral, Percutaneous Approach (ICD-10-PCS; principal; 2020-10-03)
PROC: B3101ZZ Fluoroscopy of Thoracic Aorta using Low Osmolar Contrast (ICD-10-PCS; 2020-10-03)
PROC: B2151ZZ Fluoroscopy of Left Heart using Low Osmolar Contrast (ICD-10-PCS; 2020-10-03)
PROC: B2111ZZ Fluoroscopy of Multiple Coronary Arteries using Low Osmolar Contrast (ICD-10-PCS; 2020-10-03)
DX: I21.4 Non-ST elevation (NSTEMI) myocardial infarction (principal); J96.01 Acute respiratory failure with hypoxia; I50.21 Acute systolic (congestive) heart failure; J44.1 Chronic obstructive pulmonary disease with (acute) exacerbation; I42.9 Cardiomyopathy, unspecified; G89.29 Other chronic pain; I25.10 Atherosclerotic heart disease of native coronary artery without angina pectoris; E78.5 Hyperlipidemia, unspecified; F17.210 Nicotine dependence, cigarettes, uncomplicated; I08.1 Rheumatic disorders of both mitral and tricuspid valves; I11.0 Hypertensive heart disease with heart failure; I48.91 Unspecified atrial fibrillation; Z79.02 Long term (current) use of antithrombotics/antiplatelets; Z79.82 Long term (current) use of aspirin; Z79.899 Other long term (current) drug therapy; Z82.49 Family history of ischemic heart disease and other diseases of the circulatory system; Z83.3 Family history of diabetes mellitus; Z87.01 Personal history of pneumonia (recurrent); Z95.5 Presence of coronary angioplasty implant and graft; Z90.49 Acquired absence of other specified parts of digestive tract; Z79.01 Long term (current) use of anticoagulants
CPT/HCPCS: 36415; 36600; 71045; 71275; 80048; 80053; 80307; 81001; 82565; 82805; 83735; 83880; 84132; 84484; 85025; 85049; 85610; 85730; 86141; 86850; 86900; 86901; 87040; 87081; 87426; 93005; 93306; 93460; 93567; 94644; 96365; 96372; 96375; 99152; 99153; 99291; C1751; G0378; J1956; J2250; J2405; J3490; Q9967

== ENCOUNTER 2024-01-06 06:50 | Inpatient (IN) | payer MEDICARE, MEDICAID ==
[~2024-01-06] VITALS: Ht 167.6 cm; Wt 75.1 kg
[2024-01-06 00:08] VITALS: BP 105/72; PULSE 109; RESP 20; TEMP 97.1; O2SAT 92
[~2024-01-06 06:50] MED LIST changes: -ACYC-166 PO; +ACYC1TAB3 PO; -ALPR0.25 PO; +AMIO200T33 PO; +AMIT10TA12 PO; +ATOR80TA PO; +BICT1TAB PO; -LEVO750T64 PO; +LOSA-534 PO; +SPIR25TA8 PO; +SULF1TAB75 PO; +SULF800T23 PO; -SULF800T7 PO; +TIZA1TAB20 PO; -TIZA2TAB4 PO
[2024-01-06 08:13] LABS: Alanine Aminotransferase 17 U/L (7-40); Albumin 4.5 g/dL (3.2-4.8); Alkaline Phosphatase 183 U/L (46-116); Aspartate Aminotransferase 46 U/L (13-40); BUN/Creatinine Ratio 22.1 (10.0-20.0); Bilirubin, Total 1.2 mg/dL (0.2-1.0); Blood Urea Nitrogen 21 mg/dL (9-23); Calcium 9.3 mg/dL (8.7-10.4); Carbon Dioxide 26 mmol/L (20-31); Glucose 104 mg/dL (74-106)
[2024-01-06 08:14] LABS: Total Protein 7.2 g/dL (5.7-8.2)
[2024-01-06 08:26] LABS: Chloride 105 mmol/L (98-107); Potassium 3.9 mmol/L (3.5-5.1)
[2024-01-06 08:37] LABS: Basophils # (auto) 0.1 10 ^3/uL (0-0.2); Hemoglobin 11.9 g/dL (13.5-17.5); Mean Corpuscular Hemoglobin 20.4 pg (28.0-32.0); Monocytes # (auto) 1.2 10 ^3/uL (0-1.3); Neutrophils # (auto) 11.5 10 ^3/uL (1.6-8.6)
[2024-01-06 08:38] LABS: Basophils % (auto) 0.4 % (0.0-2.0); Eosinophils # (auto) 0.1 10 ^3/uL (0-0.8); Eosinophils % (auto) 1.1 % (0.0-7.0); Hematocrit 41.6 % (41.0-53.0); Lymphocytes # (auto) 0.7 10 ^3/uL (0.4-5.4); Mean Corpuscular Hgb Conc. 28.6 g/dL (32.0-36.0); Mean Corpuscular Volume 71.1 fL (80.0-100.0); Monocytes % (auto) 8.7 % (0.0-12.0); Neutrophils % (auto) 84.8 % (37.0-80.0); Nucleated Red Blood Cells % 0.4 %; Platelet Count (auto) 257 10^3/uL (140-450); Red Blood Cells 5.85 10^6/uL (4.5-5.90); White Blood Cell 13.5 10^3/uL (4.4-10.8)
[2024-01-06 08:43] LABS: Lipase 62 U/L (12-53); Red Cell Distribution Width 22.8 % (11.8-14.3)
[2024-01-06 09:26] LABS: Anion Gap 9 (5-15); Sodium 140 mmol/L (136-145)
[2024-01-06 11:39] VITALS: RESP 16; O2SAT 94
[2024-01-06] MEDS ORDERED: NITROGLYCERIN 0.4 MG SL TAB SL PRN (12:45)
[2024-01-06] MEDS ORDERED: TIZANIDINE HYDROCHLORIDE 2 MG PO PRN (12:45)
[2024-01-06 13:27] LABS: Anisocytosis Slight; Platelet Estimate Adequate
[2024-01-06 13:28] LABS: Hypochromia Marked
[2024-01-06 14:33] LABS: INR 1.19 (0.9-1.15); Prothrombin Time 12.5 sec (9.3-11.8)
[2024-01-06] MEDS: FUROSEMIDE 100 MG/10ML VIAL IV ONE (14:42)
[2024-01-06] MEDS: FUROSEMIDE 20 MG/2 ML VIAL IV ONE (14:44)
[2024-01-06] MEDS: METOPROLOL SUCCINATE XL 50 MG TAB PO ONE (14:45)
[2024-01-06] MEDS: MORPHINE SULFATE INJ 2 MG/ml SYRG IV PRN (14:45)
[2024-01-06] MEDS: cefTRIAXone 1GM/50ML D5W 50 ML IV ONE (17:14)
[2024-01-06] MEDS: LIDOCAINE 2% JELLY 11ml (GLYDO) ONE (17:19)
[2024-01-06] MEDS: AZITHROMYCIN 500MG/ 250ML 250 ML IV ONE (17:42)
[2024-01-06 18:01] LABS: Urine Bacteria None Seen /hpf (None Seen)
[2024-01-06 18:13] LABS: Urine Blood Negative /uL (Negative); Urine Clarity Clear (Clear); Urine Color Colorless (Yellow); Urine Protein, UAD Negative (Negative); Urine Specific Gravity 1.006 (1.001-1.035); Urine Urobilinogen Normal (Negative); Urine WBC <1 /hpf (0 - 3)
[2024-01-06] MEDS: FUROSEMIDE 40 MG/4 ML VIAL IV SCH (18:15)
[2024-01-06] MEDS: OXYCODONE W/ ACETAMINOPHEN 5/325MG TABLET PO SCH (18:15)
[2024-01-06] MEDS: diphenhdrAMINE HCL 50 MG/1 ML VL IV ONE (19:59)
[2024-01-06 21:14] VITALS: PULSE 112; RESP 16; O2SAT 96
[2024-01-06] MEDS: ATORVASTATIN 20 MG TAB PO SCH (21:33)
[2024-01-07] VITALS (8 sets, daily range): BP systolic 90–134; BP diastolic 57–74; PULSE 80–114; RESP 18–20; TEMP 97.1–97.8; O2SAT 92–99
[2024-01-07] MEDS: ONDANSETRON HCL 4 MG/2 ML VIAL IV PRN (02:25)
[2024-01-07 06:43] LABS: Basophils # (auto) 0 10 ^3/uL (0-0.2); Basophils % (auto) 0.1 % (0.0-2.0); Eosinophils # (auto) 0 10 ^3/uL (0-0.8); Mean Corpuscular Hgb Conc. 29.7 g/dL (32.0-36.0); Monocytes # (auto) 1.6 10 ^3/uL (0-1.3)
[2024-01-07 06:45] LABS: Alanine Aminotransferase 11 U/L (7-40); Albumin 4.1 g/dL (3.2-4.8); Alkaline Phosphatase 116 U/L (46-116); Anion Gap 10 (5-15); Aspartate Aminotransferase 29 U/L (13-40); BUN/Creatinine Ratio 20.2 (10.0-20.0); Blood Urea Nitrogen 20 mg/dL (9-23); Carbon Dioxide 27 mmol/L (20-31); Chloride 102 mmol/L (98-107); Glucose 103 mg/dL (74-106); LDL Cholesterol 35 mg/dL (< 100); Potassium 2.8 mmol/L (3.5-5.1); Sodium 139 mmol/L (136-145); Triglycerides 58 mg/dL (< 150)
[2024-01-07 06:46] LABS: Bilirubin, Total 1.3 mg/dL (0.2-1.0); Cholesterol 72 mg/dL (< 200); HDL Cholesterol 21 mg/dL (40-59); Total Protein 6.8 g/dL (5.7-8.2)
[2024-01-07 06:47] LABS: Eosinophils % (auto) 0.2 % (0.0-7.0); Hematocrit 35.6 % (41.0-53.0); Hemoglobin 10.6 g/dL (13.5-17.5); Lymphocytes % (auto) 7.1 % (10.0-50.0); Mean Corpuscular Hemoglobin 20.5 pg (28.0-32.0); Monocytes % (auto) 11.3 % (0.0-12.0); Neutrophils # (auto) 11.1 10 ^3/uL (1.6-8.6); Neutrophils % (auto) 81.3 % (37.0-80.0); Nucleated Red Blood Cells % 0.2 %; Platelet Count (auto) 228 10^3/uL (140-450); Red Blood Cells 5.16 10^6/uL (4.5-5.90); White Blood Cell 13.7 10^3/uL (4.4-10.8)
[2024-01-07 07:10] LABS: Lipase 32 U/L (12-53)
[2024-01-07 07:59] LABS: Red Cell Distribution Width 22.1 % (11.8-14.3)
[2024-01-07] MEDS: cefTRIAXone 1GM/50ML D5W 50 ML IV SCH (08:53)
[2024-01-07 09:35] LABS: Platelet Estimate Adequate
[2024-01-07 09:37] LABS: Anisocytosis Slight; Hypochromia Marked; Ovalocytes MODERATE
[2024-01-07] MEDS ORDERED: DORAVIRINE 100 MG PO SCH (10:00)
[2024-01-07] MEDS ORDERED: ALPRAZolam 0.5 MG TAB PO SCH (10:00)
[2024-01-07] MEDS ORDERED: DOLUTEGRAVIR SODIUM 50 MG PO SCH (10:00)
[2024-01-07] MEDS ORDERED: BICTEGRAVIR EMTRICITABINE TENOFOVIR PO SCH (10:00)
[2024-01-07] MEDS: POTASSIUM CHLORIDE 80 MEQ, LIDOCAINE 1% (LOCAL ANESTH.) 6 ML in SODIUM CHL 0.9% 500 ML IV ONE (10:39)
[2024-01-07] MEDS: ENOXAPARIN SOD 40 MG/0.4 ML SYRINGE SC SCH (10:51)
[2024-01-07] MEDS: MULTIPLE VITAMINS W/ MINERALS TAB PO SCH (10:52)
[2024-01-07] MEDS: CLOPIDOGREL BISULFATE 75 MG TAB PO SCH (10:52)
[2024-01-07] MEDS: ACYCLOVIR 400 MG TAB PO SCH (11:04)
[2024-01-07] MEDS: AZITHROMYCIN 500MG/ 250ML 250 ML IV SCH (13:47)
[2024-01-07] MEDS: METOPROLOL SUCCINATE XL 50 MG TAB PO ONE (13:54)
[2024-01-07] MEDS: SULFAMETHOX W/TRIMETH(800/160MG) DS TAB PO ONE (16:34)
[2024-01-07] MEDS: POTASSIUM CHL 20 Meq TABLET PO SCH (21:34)
[2024-01-08] VITALS (7 sets, daily range): BP systolic 95–135; BP diastolic 60–90; PULSE 77–96; RESP 18–21; TEMP 97.4–98.5; O2SAT 96–98
[2024-01-08 06:23] LABS: Anion Gap 10 (5-15); Carbon Dioxide 23 mmol/L (20-31); Chloride 102 mmol/L (98-107); Sodium 135 mmol/L (136-145)
[2024-01-08 06:24] LABS: Calcium 9.5 mg/dL (8.7-10.4)
[2024-01-08 06:29] LABS: BUN/Creatinine Ratio 22.3 (10.0-20.0); Blood Urea Nitrogen 25 mg/dL (9-23); Glucose 98 mg/dL (74-106)
[2024-01-08] MEDS ORDERED: SULFAMETHOX W/TRIMETH(800/160MG) DS TAB PO SCH (10:00)
[2024-01-08] MEDS: METOPROLOL SUCCINATE XL 50 MG TAB PO SCH (10:33)
[2024-01-08] MEDS: VANCOMYCIN HCL 250 MG CAP PO ONE (15:09)
[2024-01-08] MEDS: metroNIDAZOLE 500 MG TAB PO ONE (15:09)
[2024-01-08] MEDS: VANCOMYCIN HCL 250 MG CAP PO SCH (18:13)
[2024-01-08] MEDS: FLORASTOR (S. BOULARDII) 250 MG CAP PO SCH (21:12)
[2024-01-08] MEDS: APIXABAN 5 MG TAB PO SCH (21:13)
[2024-01-08] MEDS: metroNIDAZOLE 500 MG TAB PO SCH (21:13)
[2024-01-08] MEDS: MELATONIN 5 MG TAB PO SCH (22:00)
[2024-01-09 05:00] VITALS: BP_SYST 120; BP_SYST 85; BP_DIAS 51; BP_DIAS 86; PULSE 63; PULSE 69; RESP 17; RESP 18; TEMP 98.2; TEMP 98.3; O2SAT 97
[2024-01-09 08:12] LABS: Calcium 9.3 mg/dL (8.7-10.4); Chloride 103 mmol/L (98-107); Potassium 3.9 mmol/L (3.5-5.1); Sodium 135 mmol/L (136-145)
[2024-01-09 08:18] LABS: BUN/Creatinine Ratio 21.6 (10.0-20.0); Blood Urea Nitrogen 19 mg/dL (9-23); Glucose 101 mg/dL (74-106)
[2024-01-09 08:37] VITALS: BP 129/84; PULSE 99; RESP 21; TEMP 98.1; O2SAT 97
[2024-01-09 08:59] LABS: Basophils # (auto) 0 10 ^3/uL (0-0.2); Basophils % (auto) 0.2 % (0.0-2.0); Eosinophils # (auto) 0.1 10 ^3/uL (0-0.8)
[2024-01-09 09:00] LABS: Eosinophils % (auto) 0.9 % (0.0-7.0); Hematocrit 37.5 % (41.0-53.0); Lymphocytes # (auto) 0.6 10 ^3/uL (0.4-5.4); Lymphocytes % (auto) 6.6 % (10.0-50.0); Mean Corpuscular Hemoglobin 20.3 pg (28.0-32.0); Mean Corpuscular Hgb Conc. 29.4 g/dL (32.0-36.0); Mean Corpuscular Volume 69.2 fL (80.0-100.0); Monocytes % (auto) 10.8 % (0.0-12.0); Neutrophils # (auto) 7.8 10 ^3/uL (1.6-8.6); Neutrophils % (auto) 81.5 % (37.0-80.0); Nucleated Red Blood Cells % 0.2 %; Platelet Count (auto) 257 10^3/uL (140-450); Red Blood Cells 5.42 10^6/uL (4.5-5.90); White Blood Cell 9.6 10^3/uL (4.4-10.8)
[2024-01-09 09:01] LABS: Red Cell Distribution Width 22.3 % (11.8-14.3)
[2024-01-09 09:07] LABS: Anisocytosis Slight; Platelet Estimate Adequate
[2024-01-09 09:08] LABS: Hypochromia Marked; Ovalocytes MANY
[2024-01-09] MEDS: SODIUM CHLORIDE 0.9% 500 ML IV ONE (10:52)
[2024-01-09 11:41] LABS: Anion Gap 6 (5-15); Carbon Dioxide 26 mmol/L (20-31)
[2024-01-09] MEDS: LOSARTAN POTASSIUM 25 MG TAB PO ONE (12:19)
[2024-01-09 12:45] VITALS: BP 125/82; PULSE 76; RESP 18; TEMP 97.8; O2SAT 99
[2024-01-09] MEDS: metroNIDAZOLE 500MG/100ML 100 ML IV SCH (15:12)
[2024-01-09 16:50] VITALS: BP 118/73; PULSE 95; RESP 18; TEMP 97.5; O2SAT 97
[2024-01-09 21:00] VITALS: BP 116/70; PULSE 102; RESP 18; TEMP 98.2; O2SAT 98
[2024-01-10 05:00] VITALS: BP 124/71; PULSE 93; RESP 22; TEMP 97.8; O2SAT 90
[2024-01-10 08:53] LABS: Anion Gap 4 (5-15); Carbon Dioxide 24 mmol/L (20-31); Chloride 108 mmol/L (98-107); Potassium 4.7 mmol/L (3.5-5.1); Sodium 136 mmol/L (136-145)
[2024-01-10 08:54] LABS: Calcium 9.2 mg/dL (8.7-10.4)
[2024-01-10 08:59] LABS: BUN/Creatinine Ratio 22.5 (10.0-20.0); Blood Urea Nitrogen 16 mg/dL (9-23); Glucose 89 mg/dL (74-106)
[2024-01-10 09:24] VITALS: BP 121/80; PULSE 93; RESP 18; TEMP 97.8; O2SAT 97
[2024-01-10] MEDS: LOSARTAN POTASSIUM 25 MG TAB PO SCH (12:02)
[2024-01-10 13:00] VITALS: BP 121/81; PULSE 73; RESP 18; TEMP 97.7; O2SAT 98
[2024-01-10 17:12] VITALS: BP 122/81; PULSE 78; RESP 18; TEMP 97.8; O2SAT 96
[2024-01-10 20:00] VITALS: PULSE 98; RESP 18; O2SAT 95
[2024-01-10 21:00] VITALS: BP 116/85; PULSE 98; RESP 18; TEMP 98.9; O2SAT 95
[2024-01-11] VITALS (8 sets, daily range): BP systolic 117–123; BP diastolic 70–84; PULSE 81–95; RESP 17–19; TEMP 97.1–97.8; O2SAT 95–99
== END 2024-01-11 21:42 | DRG 871 ==
LOC: ER 06:50 → EDUNIT# 06:50 → EDBD 06:50 → TELE 12:59 → TELE-E-ADS 23:39 → TELE-CENTR 01-07 04:15 → CENTRAL 01-08 15:52
PROVIDERS: ADMIT Internal Medicine; ATTEND Internal Medicine
DX: A41.89 Other specified sepsis (principal); I50.23 Acute on chronic systolic (congestive) heart failure; J96.21 Acute and chronic respiratory failure with hypoxia; A04.72 Enterocolitis due to Clostridium difficile, not specified as recurrent; D68.69 Other thrombophilia; J44.1 Chronic obstructive pulmonary disease with (acute) exacerbation; I48.20 Chronic atrial fibrillation, unspecified; I11.0 Hypertensive heart disease with heart failure; D72.829 Elevated white blood cell count, unspecified; F17.210 Nicotine dependence, cigarettes, uncomplicated; E78.5 Hyperlipidemia, unspecified; I25.10 Atherosclerotic heart disease of native coronary artery without angina pectoris; G89.29 Other chronic pain; E87.6 Hypokalemia; Z83.3 Family history of diabetes mellitus; Z95.5 Presence of coronary angioplasty implant and graft; Z82.49 Family history of ischemic heart disease and other diseases of the circulatory system; Z21 Asymptomatic human immunodeficiency virus [HIV] infection status; Z79.899 Other long term (current) drug therapy; Z91.011 Allergy to milk products
CPT/HCPCS: 36415; 71045; 76705; 80048; 80053; 80061; 81001; 82306; 82607; 83036; 83690; 83735; 83880; 85025; 85610; 86803; 87081; 87493; 93306; 96365; 96375; 97110; 97116; 97163; 97530; 99291; G0378; J2003; J2405; J3490